=== PATIENT | male | born 1985 | race Caucasian/White ===

== ENCOUNTER 2016-07-26 20:25 | Emergency (ER) | payer BC ==
[~2016-07-26] VITALS: Ht 165.1 cm; Wt 84.1 kg
[2016-07-26 20:27] VITALS: TEMP 98.5
[2016-07-26 21:00] LABS: BASO % 0.3 % (0.0-2.0); EOS # 0.2 (0.0-0.7); EOS % 1.3 % (0-4.0); GRAN # 9.9 (1.4-6.5); GRAN % 85.2 % (42.2-75.2); LYMPH # 0.8 (1.2-3.4); LYMPH % 6.5 % (20.0-51.0); MEAN CELL VOLUME 88 fl (80.0-100.0); MEAN CORPUSCULAR HGB CONC 37 g/dl (33.0-37.0); MEAN PLATELET VOLUME 9.5 fl (7.4-10.4); MONO # 0.6 (0.1-0.6); MONO % 4.8 % (1.7-9.3); PLATELET COUNT 153 K/mm3 (130-400); RED BLOOD COUNT 3.15 M/mm3 (4.20-5.60); REDCELL DISTRIBUTION WIDTH-CV 13.7 % (11.5-14.5); WHITE BLOOD COUNT 11.6 K/mm3 (4.8-10.8)
[2016-07-26 21:01] LABS: HEMATOCRIT 27.8 % (42.0-52.0); HEMOGLOBIN 10.4 g/dl (13.5-18.0); MEAN CORPUSCULAR HEMOGLOBIN 33 pg (27.0-31.0)
[2016-07-26 21:02] LABS: INR 1.7 (0.8-3.0); PROTHROMBIN TIME 19.5 SECONDS (9.7-12.8)
[2016-07-26 21:04] LABS: PARTIAL THROMBOPLASTIN TIME 37.1 SECONDS (26.0-37.0)
[2016-07-26 21:08] LABS: ADJUSTED CALCIUM 8.5 mg/dL (8.4-10.2); ALANINE AMINOTRANSFERASE 59 U/L (21-72); ALBUMIN 3.7 gm/dL (3.5-5.0); ALKALINE PHOSPHATASE 377 U/L (50-136); ANION GAP 20 mmol/L (7-16); BILIRUBIN,TOTAL 14.9 mg/dL (0.0-1.0); BLOOD UREA NITROGEN 12 mg/dL (9-20); C-REACTIVE PROTEIN 6.1 mg/dL (0.0-0.9); CALCIUM 8.3 mg/dL (8.4-10.2); CARBON DIOXIDE 26 mmol/L (22-30); CREATININE, serum 0.64 mg/dL (0.66-1.25); GLUCOSE 93 mg/dL (74-106); LIPASE 290 U/L (23-300); POTASSIUM 3.8 mmol/L (3.4-5.0); TOTAL PROTEIN 7.6 gm/dL (6.4-8.2)
[2016-07-26 21:10] LABS: ACETAMINOPHEN < 10 ug/mL (10-30); SODIUM 117 mmol/L (137-145)
[2016-07-26 21:11] LABS: CHLORIDE 71 mmol/L (98-107)
[2016-07-26 21:17] LABS: MAGNESIUM 1.9 mg/dL (1.6-2.3)
[2016-07-26 21:27] LABS: B-TYPE NATRIURETIC PEPTIDE 257 pg/mL (0-125)
[2016-07-26 23:50] VITALS: BP 129/79; PULSE 118
[2016-07-26 23:57] LABS: PH 5 (5-8); SQUAMOUS EPITHELIAL 0-2 /hpf; URINE APPEARANCE Hazy; URINE BACTERIA None Seen /hpf; URINE BILIRUBIN Positive (NEGATIVE); URINE BLOOD Negative (NEGATIVE); URINE COLOR Amber; URINE GLUCOSE 1+ (NEGATIVE); URINE KETONE 2+ (NEGATIVE); URINE RBC 0-2 /hpf; URINE UROBILINOGEN >=4.0 mg/dL (NEGATIVE)
== END 2016-07-26 23:50 | disposition short-term general hospital (02) ==
LOC: COL.ER 20:25
PROVIDERS: Emergency Medicine
DX: E87.1 Hypo-osmolality and hyponatremia (principal); R10.13 Epigastric pain; R17 Unspecified jaundice; R14.0 Abdominal distension (gaseous); R11.2 Nausea with vomiting, unspecified; R53.1 Weakness; R00.0 Tachycardia, unspecified; R16.0 Hepatomegaly, not elsewhere classified
CPT/HCPCS: J3411; J3475; J7030